=== PATIENT | male | born 1990 | race Caucasian/White ===

== ENCOUNTER 2018-08-27 16:23 | Emergency (ER) | payer MEDICARE, OTHER ==
[~2018-08-27] VITALS: Ht 175.3 cm; Wt 79.0 kg
[2018-08-27 16:44] VITALS: BP 150/89; PULSE 75; RESP 18; Ht 175.3 cm; Wt 79.0 kg
[2018-08-27] MEDS ORDERED: LORAZEPAM 1 MG TAB PO ONE (17:30)
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
== END 2018-08-27 19:42 | disposition left against medical advice (07) ==
LOC: FTE 16:23
DX: I10 Essential (primary) hypertension (principal); F41.9 Anxiety disorder, unspecified; J45.909 Unspecified asthma, uncomplicated; F17.210 Nicotine dependence, cigarettes, uncomplicated
CPT/HCPCS: 71045; 93005